=== PATIENT | female | born 1975 | race Caucasian/White ===

== ENCOUNTER 2022-02-10 11:21 | Day surgery (SDC) | payer BC, OTHER ==
[2022-02-09 12:53] VITALS: BMI 25.6
[2022-02-10 12:32] VITALS: RESP 18
[2022-02-10 14:14] VITALS: TEMP 98.1
[2022-02-10 14:16] VITALS: BP 124/81; PULSE 75
== END 2022-02-10 14:30 | disposition home or self-care (01) ==
LOC: FASU-ENDO 11:21
PROVIDERS: ATTEND Internal Medicine Gastroenterology
PROC: 0DB68ZX Excision of Stomach, Via Natural or Artificial Opening Endoscopic, Diagnostic (ICD-10-PCS; 2022-02-10)
PROC: 0DB48ZX Excision of Esophagogastric Junction, Via Natural or Artificial Opening Endoscopic, Diagnostic (ICD-10-PCS; 2022-02-10)
PROC: 0DB98ZX Excision of Duodenum, Via Natural or Artificial Opening Endoscopic, Diagnostic (ICD-10-PCS; principal; 2022-02-10 13:42)
DX: Z13.810 Encounter for screening for upper gastrointestinal disorder (principal); K29.50 Unspecified chronic gastritis without bleeding; K20.90 Esophagitis, unspecified without bleeding; K31.89 Other diseases of stomach and duodenum
CPT/HCPCS: 84703; 88305-TC; 88342-TC

== ENCOUNTER 2022-04-17 07:40 | Day surgery (SDC) | payer BC, OTHER ==
[2022-04-14 14:50] VITALS: BMI 26.5
[2022-04-17] MEDS ORDERED: PROPOFOL 40 ML ONE (08:21)
[2022-04-17] MEDS ORDERED: LIDOCAINE HCL/PF 2% SDV 5ML VIAL ONE (08:22)
[2022-04-17 09:21] VITALS: BP 118/64; PULSE 82; RESP 18; TEMP 97.9
== END 2022-04-17 09:54 | disposition home or self-care (01) ==
LOC: FASU-ENDO 07:40
PROVIDERS: ATTEND Internal Medicine Gastroenterology
PROC: 0DJD8ZZ Inspection of Lower Intestinal Tract, Via Natural or Artificial Opening Endoscopic (ICD-10-PCS; principal; 2022-04-17 09:02)
DX: Z12.11 Encounter for screening for malignant neoplasm of colon (principal); K64.1 Second degree hemorrhoids
CPT/HCPCS: 81025